=== PATIENT | female | born 1980 | race Caucasian/White ===

== ENCOUNTER 2017-11-15 05:56 | Emergency (ER) | payer OTHER ==
[2017-11-15] MEDS: HALOPERIDOL 5 MG INJ IM (06:14)
[2017-11-15] MEDS: LORAZEPAM 2 MG INJ IM (06:14)
[2017-11-15 06:53] LABS: ADD UMIC YES; UR ASCORBIC ACID NEGATIVE (NEGATIVE); UR BILIRUBIN (Dip) NEGATIVE (NEGATIVE); UR BLOOD (Dip) 1+ mg/dL (NEGATIVE); UR CLARITY CLEAR (CLEAR); UR COLOR COLORLESS (YELLOW); UR GLUCOSE (Dip) NEGATIVE (NEGATIVE); UR KETONES (Dip) TRACE mg/dL (NEGATIVE); UR LEUKOCYTE ESTERASE (Dip) NEGATIVE Leu/ul (NEGATIVE); UR NITRITE (Dip) NEGATIVE (NEGATIVE); UR RBC 0 /HPF (0-5); UR SPECIFIC GRAVITY (Dip) 1.002 (1.003-1.030); UR TOTAL PROTEIN (Dip) NEGATIVE (NEGATIVE); UR UROBILINOGEN (Dip) NEGATIVE (NEGATIVE); UR WBC 0 /HPF (0-5)
[2017-11-15 07:12] LABS: AMPHETAMINE/METHAMPHETAMINE Negative (NEGATIVE)
[2017-11-15 07:13] LABS: BARBITURATES Negative (NEGATIVE); BENZODIAZEPINES Negative (NEGATIVE); CANNABINOIDS Negative (NEGATIVE); COCAINE Negative (NEGATIVE); OPIATES Negative (NEGATIVE)
[2017-11-15 07:14] LABS: ADD MAN DIFF? NO
[2017-11-15 07:20] LABS: WHITE BLOOD COUNT 8.6 10^3/ul (4.8-10.8)
[2017-11-15 07:20] LABS: BASOPHILS % 0.1 % (0.0-2.0); HEMATOCRIT 34.8 % (37.0-47.0); HEMOGLOBIN 12.4 g/dl (12.0-16.0); LYMPHOCYTES # 0.9 10^3/ul (0.8-2.9); LYMPHOCYTES % 10.7 % (15.0-51.0); MEAN CORPUSCULAR HEMOGLOBIN 31.1 pg (29.0-33.0); MEAN CORPUSCULAR HGB CONC 35.6 g/dl (32.0-37.0); MEAN CORPUSCULAR VOLUME 87.2 fl (82.0-101.0); MEAN PLATELET VOLUME 9.7 fl (7.4-10.4); MONOCYTE # 0.4 10^3/ul (0.3-0.9); MONOCYTES % 4.3 % (0.0-11.0); NEUTROPHIL # 7.2 10^3/ul (1.6-7.5); NEUTROPHILS % 84.5 % (39.0-77.0); PLATELET COUNT 269 10^3/UL (140-415); RED BLOOD COUNT 3.99 10^6/ul (4.20-5.40); RED CELL DISTRIBUTION WIDTH 11.9 % (11.5-14.5)
[2017-11-15 07:37] LABS: ALANINE AMINOTRANSFERASE 34 IU/L (13-69); ALBUMIN 4.3 g/dl (3.3-4.9); ALKALINE PHOSPHATASE 84 IU/L (42-121); ANION GAP 17 (8-16); ASPARTATE AMINO TRANSFERASE 29 IU/L (15-46); BILIRUBIN,INDIRECT 0.8 mg/dl (0-1.1); BILIRUBIN,TOTAL 0.8 mg/dl (0.2-1.3); BLOOD UREA NITROGEN 11 mg/dl (7-20); CALCIUM 8.8 mg/dl (8.4-10.2); CARBON DIOXIDE 21 mmol/L (21-31); CHLORIDE 100 mmol/L (97-110); CREATININE 0.51 mg/dl (0.44-1.00); GLUCOSE 130 mg/dl (70-220); SODIUM 135 mmol/L (135-144); TOTAL PROTEIN 7.6 g/dl (6.1-8.1)
[2017-11-15 07:55] LABS: ACETAMINOPHEN < 10.0 ug/ml (10.0-30.0)
[2017-11-15 07:56] LABS: SALICYLATE < 1.0 mg/dl (5.0-30.0)
[2017-11-15 08:35] LABS: ETHANOL < 10.0 mg/dl
== END 2017-11-15 14:47 | disposition home or self-care (01) ==
LOC: E/R 05:56
DX: S01.511A Laceration without foreign body of lip, initial encounter (principal); T50.901A Poisoning by unspecified drugs, medicaments and biological substances, accidental (unintentional), initial encounter; F29 Unspecified psychosis not due to a substance or known physiological condition; F17.210 Nicotine dependence, cigarettes, uncomplicated; X58.XXXA Exposure to other specified factors, initial encounter; Y92.9 Unspecified place or not applicable
CPT/HCPCS: 36415; 70450; 80053; 80306; 80307; 81001; 84703; 85025; 96372; 99291-25

== ENCOUNTER 2017-11-16 13:17 | Emergency (ER) | payer OTHER ==
[2017-11-16] MEDS: DIPHENHYDRAMINE 50 MG CAP PO (13:50)
[2017-11-16] MEDS: BENZTROPINE 1 MG TAB PO (13:56)
== END 2017-11-16 14:35 | disposition home or self-care (01) ==
LOC: E/R 13:17
DX: G24.02 Drug induced acute dystonia (principal); F17.210 Nicotine dependence, cigarettes, uncomplicated; T43.4X5A Adverse effect of butyrophenone and thiothixene neuroleptics, initial encounter
CPT/HCPCS: 99283; Z7502

== ENCOUNTER 2018-01-30 10:47 | Emergency (ER) | payer OTHER | END 2018-01-30 11:44 | disposition home or self-care (01) | LOC: E/R 11:44 → FTE 10:47 | DX: H10.10 Acute atopic conjunctivitis, unspecified eye (principal); Z87.891 Personal history of nicotine dependence | CPT/HCPCS: 99283; Z7502 ==

== ENCOUNTER 2018-02-26 23:53 | Emergency (ER) | payer SELFPAY, OTHER | END 2018-02-27 01:46 | disposition left against medical advice (07) | LOC: E/R 23:53 | DX: Z53.21 Procedure and treatment not carried out due to patient leaving prior to being seen by health care provider (principal) ==

== ENCOUNTER 2018-07-23 17:17 | Emergency (ER) | payer OTHER ==
[2018-07-23] MEDS: DIPHENHYDRAMINE 50 MG CAP PO (20:35)
[2018-07-23] MEDS: KETOROLAC 60 MG INJ IM (20:35)
== END 2018-07-23 21:40 | disposition home or self-care (01) ==
LOC: FTE 17:17
DX: L29.9 Pruritus, unspecified (principal); J02.9 Acute pharyngitis, unspecified; R22.1 Localized swelling, mass and lump, neck; F17.210 Nicotine dependence, cigarettes, uncomplicated
CPT/HCPCS: 81025; 96372; 99284-25

== ENCOUNTER 2018-09-09 14:15 | Emergency (ER) | payer OTHER ==
[2018-09-09] MEDS: SOD CHLORIDE 0.9% 500 ML IV (14:56)
[2018-09-09 15:03] LABS: ADD MAN DIFF? NO
[2018-09-09 15:05] LABS: BASOPHILS % 0.3 % (0.0-2.0); EOSINOPHILS # 0.2 10^3/ul (0.0-0.5); HEMATOCRIT 43.2 % (37.0-47.0); HEMOGLOBIN 14.7 g/dl (12.0-16.0); LYMPHOCYTES # 0.7 10^3/ul (0.8-2.9); LYMPHOCYTES % 4.6 % (15.0-51.0); MEAN CORPUSCULAR HEMOGLOBIN 30.2 pg (29.0-33.0); MEAN CORPUSCULAR VOLUME 88.7 fl (82.0-101.0); MEAN PLATELET VOLUME 9.3 fl (7.4-10.4); MONOCYTE # 0.5 10^3/ul (0.3-0.9); MONOCYTES % 3.5 % (0.0-11.0); NEUTROPHIL # 13.8 10^3/ul (1.6-7.5); NEUTROPHILS % 90.3 % (39.0-77.0); PLATELET COUNT 358 10^3/UL (140-415); RED BLOOD COUNT 4.87 10^6/ul (4.20-5.40); RED CELL DISTRIBUTION WIDTH 11.9 % (11.5-14.5)
[2018-09-09 15:05] LABS: WHITE BLOOD COUNT 15.3 10^3/ul (4.8-10.8)
[2018-09-09 15:16] LABS: ADD UMIC YES; UR ASCORBIC ACID 40 mg/dL (NEGATIVE); UR BACTERIA FEW /HPF (NONE SEEN); UR BILIRUBIN (Dip) NEGATIVE (NEGATIVE); UR BLOOD (Dip) NEGATIVE (NEGATIVE); UR CLARITY SLIGHTLY CLOUDY (CLEAR); UR COLOR AMBER (YELLOW); UR GLUCOSE (Dip) NEGATIVE (NEGATIVE); UR KETONES (Dip) TRACE mg/dL (NEGATIVE); UR LEUKOCYTE ESTERASE (Dip) NEGATIVE Leu/ul (NEGATIVE); UR MUCUS MANY /HPF (NONE SEEN); UR NITRITE (Dip) NEGATIVE (NEGATIVE); UR RBC 8 /HPF (0-5); UR SPECIFIC GRAVITY (Dip) 1.031 (1.003-1.030); UR SQUAMOUS EPITHELIAL CELL FEW /HPF (FEW); UR TOTAL PROTEIN (Dip) 1+ mg/dl (NEGATIVE); UR UROBILINOGEN (Dip) NEGATIVE (NEGATIVE); UR WBC 2 /HPF (0-5)
[2018-09-09 15:24] LABS: ALANINE AMINOTRANSFERASE 10 IU/L (13-69); ALBUMIN 4.7 g/dl (3.3-4.9); ALBUMIN/GLOBULIN RATIO 1.34; ALKALINE PHOSPHATASE 99 IU/L (42-121); ANION GAP 13 (5-13); ASPARTATE AMINO TRANSFERASE 25 IU/L (15-46); BILIRUBIN,INDIRECT 0.4 mg/dl (0-1.1); BILIRUBIN,TOTAL 0.4 mg/dl (0.2-1.3); BLOOD UREA NITROGEN 10 mg/dl (7-20); CALCIUM 9.4 mg/dl (8.4-10.2); CARBON DIOXIDE 24 mmol/L (21-31); CHLORIDE 101 mmol/L (97-110); Estimated GFR > 60 mL/min (>60); GLUCOSE 100 mg/dl (70-220); POTASSIUM 4.3 mmol/L (3.5-5.1); SODIUM 138 mmol/L (135-144); TOTAL PROTEIN 8.2 g/dl (6.1-8.1)
== END 2018-09-09 16:03 | disposition home or self-care (01) ==
LOC: FTE 14:15
DX: O30.041 Twin pregnancy, dichorionic/diamniotic, first trimester (principal); O20.0 Threatened abortion; R10.11 Right upper quadrant pain; Z3A.01 Less than 8 weeks gestation of pregnancy
CPT/HCPCS: 76705; 76801; 80053; 81001; 84702; 85025; 87086; 96360; 99285-25

== ENCOUNTER 2018-10-12 18:01 | Emergency (ER) | payer OTHER ==
[2018-10-12] MEDS: ACETAMINOPHEN 325 MG TAB PO (19:40)
[2018-10-12] MEDS: SOD CHLORIDE 0.9% 1,000 ML IV (19:40)
[2018-10-12 19:46] LABS: ADD MAN DIFF? NO
[2018-10-12 19:49] LABS: BASOPHILS % 0.3 % (0.0-2.0); EOSINOPHILS # 0.3 10^3/ul (0.0-0.5); EOSINOPHILS % 2.7 % (0.0-7.0); HEMATOCRIT 38.1 % (37.0-47.0); HEMOGLOBIN 12.8 g/dl (12.0-16.0); LYMPHOCYTES # 2.1 10^3/ul (0.8-2.9); MEAN CORPUSCULAR HEMOGLOBIN 29.7 pg (29.0-33.0); MEAN CORPUSCULAR HGB CONC 33.6 g/dl (32.0-37.0); MEAN CORPUSCULAR VOLUME 88.4 fl (82.0-101.0); MEAN PLATELET VOLUME 9.5 fl (7.4-10.4); MONOCYTE # 0.8 10^3/ul (0.3-0.9); MONOCYTES % 7.5 % (0.0-11.0); NEUTROPHIL # 6.8 10^3/ul (1.6-7.5); NEUTROPHILS % 68.1 % (39.0-77.0); PLATELET COUNT 323 10^3/UL (140-415); RED BLOOD COUNT 4.31 10^6/ul (4.20-5.40); RED CELL DISTRIBUTION WIDTH 12.5 % (11.5-14.5)
[2018-10-12 19:55] LABS: ADD UMIC YES; UR ASCORBIC ACID 40 mg/dL (NEGATIVE); UR BILIRUBIN (Dip) NEGATIVE (NEGATIVE); UR BLOOD (Dip) 3+ mg/dL (NEGATIVE); UR CLARITY CLEAR (CLEAR); UR COLOR YELLOW (YELLOW); UR GLUCOSE (Dip) NEGATIVE (NEGATIVE); UR KETONES (Dip) TRACE mg/dL (NEGATIVE); UR LEUKOCYTE ESTERASE (Dip) NEGATIVE Leu/ul (NEGATIVE); UR MUCUS FEW /HPF (NONE SEEN); UR NITRITE (Dip) NEGATIVE (NEGATIVE); UR RBC 123 /HPF (0-5); UR SPECIFIC GRAVITY (Dip) 1.029 (1.003-1.030); UR TOTAL PROTEIN (Dip) NEGATIVE (NEGATIVE); UR UROBILINOGEN (Dip) NEGATIVE (NEGATIVE); UR WBC 2 /HPF (0-5)
== END 2018-10-12 20:50 | disposition home or self-care (01) ==
LOC: FTE 18:01
DX: O20.0 Threatened abortion (principal); Z3A.12 12 weeks gestation of pregnancy
CPT/HCPCS: 36415; 76801; 81001; 84702; 85025; 86900; 86901; 99285-25

== ENCOUNTER 2018-10-26 13:10 | Emergency (ER) | payer OTHER ==
[2018-10-26 15:11] LABS: URINE PH (Dip) POC 6.5 (5.0-8.5)
[2018-10-26 15:11] LABS: URINE BLOOD (Dip) POC Trace-lysed (NEGATIVE); URINE GLUCOSE (Dip) POC Negative (NEGATIVE); URINE KETONES (Dip) POC 1+ (NEGATIVE); URINE LEUKOCYTE EST (Dip) POC Negative (NEGATIVE); URINE NITRITE (Dip) POC Negative (NEGATIVE); URINE TOTAL PROTEIN POC 1+ (NEGATIVE)
== END 2018-10-26 17:35 | disposition home or self-care (01) ==
LOC: FTE 13:10
DX: O20.9 Hemorrhage in early pregnancy, unspecified (principal); O30.002 Twin pregnancy, unspecified number of placenta and unspecified number of amniotic sacs, second trimester; Z3A.15 15 weeks gestation of pregnancy; Z87.891 Personal history of nicotine dependence
CPT/HCPCS: 76805; 81003; 99284-25

== ENCOUNTER 2019-03-26 07:09 | Inpatient (IN) | payer OTHER ==
[2019-03-26] MEDS ORDERED: OXYTOCIN 30 UNITS/LR 500 ML IV ×2 (08:30→11:00)
[2019-03-26] MEDS ORDERED: METHYLERGONOVINE 0.2 MG INJ IM ×2 (08:30→11:00)
[2019-03-26] MEDS ORDERED: MISOPROSTOL 200 MCG TAB PR ×2 (08:30→11:00)
[2019-03-26] MEDS ORDERED: CARBOPROST 250 MCG INJ IM ×2 (08:30→11:00)
[2019-03-26 08:42] LABS: ADD MAN DIFF? NO
[2019-03-26] MEDS: LACTATED RINGER'S 1,000 ML IV ×2 (08:44→09:15)
[2019-03-26 08:46] LABS: BASOPHILS % 0.4 % (0.0-2.0); EOSINOPHILS # 0.2 10^3/ul (0.0-0.5); HEMOGLOBIN 12.9 g/dl (12.0-16.0); LYMPHOCYTES # 1.6 10^3/ul (0.8-2.9); LYMPHOCYTES % 20.6 % (15.0-51.0); MEAN CORPUSCULAR HEMOGLOBIN 29.3 pg (29.0-33.0); MEAN CORPUSCULAR HGB CONC 33.1 g/dl (32.0-37.0); MEAN CORPUSCULAR VOLUME 88.4 fl (82.0-101.0); MEAN PLATELET VOLUME 9.6 fl (7.4-10.4); MONOCYTE # 0.7 10^3/ul (0.3-0.9); MONOCYTES % 9.3 % (0.0-11.0); NEUTROPHIL # 5.2 10^3/ul (1.6-7.5); NEUTROPHILS % 67.1 % (39.0-77.0); PLATELET COUNT 250 10^3/UL (140-415); RED BLOOD COUNT 4.41 10^6/ul (4.20-5.40); RED CELL DISTRIBUTION WIDTH 13.8 % (11.5-14.5)
[2019-03-26 08:46] LABS: WHITE BLOOD COUNT 7.8 10^3/ul (4.8-10.8)
[2019-03-26] MEDS ORDERED: AZITHROMYCIN 500 MG in SOD CHLORIDE 0.9% 250 ML IVPB (09:00)
[2019-03-26 09:12] LABS: INR 0.94; PROTIME 12.7 Sec (11.9-14.9)
[2019-03-26 09:13] LABS: PARTIAL THROMBOPLASTIN TIME 29.1 Sec (23.0-35.0)
[2019-03-26] MEDS: AZITHROMYCIN 500 MG in SOD CHLORIDE 0.9% 250 ML IVPB (09:25)
[2019-03-26] MEDS ORDERED: NALOXONE (0.4 MG/ML) INJ IV (09:30)
[2019-03-26] MEDS ORDERED: ONDANSETRON 4 MG INJ IV ×2 (09:30)
[2019-03-26] MEDS ORDERED: ALBUTEROL 0.083% (NEB) 2.5 MG/3 ML AMP HHN (09:30)
[2019-03-26] MEDS ORDERED: PHENYLephrine (100 MCG/ML) 5ML SYG (09:30)
[2019-03-26] MEDS ORDERED: HYDROmorphONE 1 MG/5 ML IV SYRINGE IV ×3 (09:30)
[2019-03-26] MEDS ORDERED: DIPHENHYDRAMINE 50 MG INJ IV (09:30)
[2019-03-26] MEDS ORDERED: EPHEDrine 25 MG/5 ML SYG (09:30)
[2019-03-26] MEDS ORDERED: HYDROmorphONE 0.5 MG/0.5 ML SYG IV (09:30)
[2019-03-26] MEDS ORDERED: FENTAnyl 50 MCG/ML VIAL IV ×3 (09:30)
[2019-03-26] MEDS ORDERED: METOCLOPRAMIDE 10 MG INJ IV (09:30)
[2019-03-26] MEDS ORDERED: METHYLERGONOVINE 0.2 MG INJ ×2 (09:30→20:00)
[2019-03-26] MEDS ORDERED: CEFAZOLIN 1 GM INJ (09:30)
[2019-03-26] MEDS ORDERED: OXYTOCIN 30 UNITS/LR 500 ML BAG IV (09:30)
[2019-03-26 09:31] LABS: ADD UMIC NO; UR ASCORBIC ACID NEGATIVE (NEGATIVE); UR BILIRUBIN (Dip) NEGATIVE (NEGATIVE); UR BLOOD (Dip) NEGATIVE (NEGATIVE); UR CLARITY CLEAR (CLEAR); UR COLOR YELLOW (YELLOW); UR GLUCOSE (Dip) NEGATIVE (NEGATIVE); UR KETONES (Dip) NEGATIVE (NEGATIVE); UR LEUKOCYTE ESTERASE (Dip) NEGATIVE Leu/ul (NEGATIVE); UR NITRITE (Dip) NEGATIVE (NEGATIVE); UR SPECIFIC GRAVITY (Dip) 1.017 (1.003-1.030); UR TOTAL PROTEIN (Dip) NEGATIVE (NEGATIVE); UR UROBILINOGEN (Dip) NEGATIVE (NEGATIVE)
[2019-03-26] MEDS ORDERED: morphine SULFATE/PF (10 MG/10 ML) INJ (09:37)
[2019-03-26 09:42] LABS: HEPATITIS B SURFACE ANTIGEN NEGATIVE (NEGATIVE)
[2019-03-26] MEDS: OXYTOCIN 30 UNITS/LR 500 ML IV ×3 (10:47→20:19)
[2019-03-26] MEDS ORDERED: NACL 0.9% 3 ML SYG IV (11:00)
[2019-03-26] MEDS: CEFAZOLIN 2 GM/50 ML (PMX) 50 ML IVPB ×3 (11:00→17:17)
[2019-03-26] MEDS: KETOROLAC 30 MG INJ IV (12:15)
[2019-03-26] MEDS: HYDROmorphONE 0.5 MG/0.5 ML SYG IV (17:18)
[2019-03-26 18:16] LABS: RAPID PLASMA REAGIN NONREACTIVE (NR)
[2019-03-27] MEDS: HYDROmorphONE 0.5 MG/0.5 ML SYG IV (01:18)
[2019-03-27] MEDS: CEFAZOLIN 2 GM/50 ML (PMX) 50 ML IVPB ×2 (01:18→09:02)
[2019-03-27] MEDS: KETOROLAC 30 MG INJ IV ×2 (02:54→08:46)
[2019-03-27] MEDS: DIPHENHYDRAMINE 50 MG INJ IV (05:12)
[2019-03-27] MEDS: LACTATED RINGER'S 1,000 ML IV ×2 (06:19→13:30)
[2019-03-27 08:17] LABS: ADD MAN DIFF? NO
[2019-03-27 08:21] LABS: WHITE BLOOD COUNT 9.8 10^3/ul (4.8-10.8)
[2019-03-27 08:22] LABS: BASOPHILS % 0.3 % (0.0-2.0); EOSINOPHILS # 0.1 10^3/ul (0.0-0.5); EOSINOPHILS % 1.3 % (0.0-7.0); HEMATOCRIT 34.2 % (37.0-47.0); HEMOGLOBIN 11.5 g/dl (12.0-16.0); LYMPHOCYTES # 1.7 10^3/ul (0.8-2.9); LYMPHOCYTES % 17.1 % (15.0-51.0); MEAN CORPUSCULAR HEMOGLOBIN 29.6 pg (29.0-33.0); MEAN CORPUSCULAR HGB CONC 33.6 g/dl (32.0-37.0); MEAN CORPUSCULAR VOLUME 88.1 fl (82.0-101.0); MEAN PLATELET VOLUME 9.6 fl (7.4-10.4); MONOCYTE # 0.7 10^3/ul (0.3-0.9); MONOCYTES % 7.3 % (0.0-11.0); NEUTROPHIL # 7.2 10^3/ul (1.6-7.5); NEUTROPHILS % 73.7 % (39.0-77.0); PLATELET COUNT 212 10^3/UL (140-415); RED BLOOD COUNT 3.88 10^6/ul (4.20-5.40); RED CELL DISTRIBUTION WIDTH 13.9 % (11.5-14.5)
[2019-03-27] MEDS: OXYCODONE/ACETAMINOPHEN (5/325) TAB PO ×2 (14:13→23:57)
[2019-03-27] MEDS: IBUPROFEN 600 MG TAB PO ×2 (17:13→23:57)
[2019-03-28] MEDS: IBUPROFEN 600 MG TAB PO ×4 (06:44→23:53)
[2019-03-28] MEDS: OXYCODONE/ACETAMINOPHEN (5/325) TAB PO (22:12)
[2019-03-29] MEDS: IBUPROFEN 600 MG TAB PO ×2 (05:46→12:47)
[2019-03-29] MEDS: OXYCODONE/ACETAMINOPHEN (5/325) TAB PO (06:15)
[2019-03-29] MEDS: DIPHTH/TET/ACEL PERTUSS (ADULT) 0.5 ML VIAL IM* (14:33)
== END 2019-03-29 15:05 | disposition home or self-care (01) | DRG 788 ==
LOC: OBT 07:09 → L-D 07:09 → OBT 08:20 → L-D 08:20 → PP1 14:44
PROVIDERS: Obstetrics & Gynecology
PROC: 10D00Z1 Extraction of Products of Conception, Low, Open Approach (ICD-10-PCS; principal; 2019-03-26 10:00)
DX: O60.14X0 Preterm labor third trimester with preterm delivery third trimester, not applicable or unspecified (principal); O30.043 Twin pregnancy, dichorionic/diamniotic, third trimester; O99.214 Obesity complicating childbirth; E66.9 Obesity, unspecified; G89.18 Other acute postprocedural pain; Z3A.36 36 weeks gestation of pregnancy; Z37.2 Twins, both liveborn; Z23 Encounter for immunization
CPT/HCPCS: 81003; 85025; 85610; 85730; 86592; 86850; 86900; 86901; 87340; 88307; 90715; 99464

== ENCOUNTER 2019-04-19 23:28 | Emergency (ER) | payer OTHER ==
[2019-04-20 00:20] LABS: ADD MAN DIFF? NO
[2019-04-20 00:22] LABS: WHITE BLOOD COUNT 7.2 10^3/ul (4.8-10.8)
[2019-04-20 00:22] LABS: BASOPHILS % 0.6 % (0.0-2.0); EOSINOPHILS # 0.5 10^3/ul (0.0-0.5); EOSINOPHILS % 6.5 % (0.0-7.0); HEMATOCRIT 38.7 % (37.0-47.0); HEMOGLOBIN 12.9 g/dl (12.0-16.0); LYMPHOCYTES # 2.8 10^3/ul (0.8-2.9); LYMPHOCYTES % 38.7 % (15.0-51.0); MEAN CORPUSCULAR HEMOGLOBIN 29.1 pg (29.0-33.0); MEAN CORPUSCULAR HGB CONC 33.3 g/dl (32.0-37.0); MEAN CORPUSCULAR VOLUME 87.2 fl (82.0-101.0); MONOCYTE # 0.7 10^3/ul (0.3-0.9); MONOCYTES % 9.3 % (0.0-11.0); NEUTROPHIL # 3.2 10^3/ul (1.6-7.5); NEUTROPHILS % 44.6 % (39.0-77.0); PLATELET COUNT 249 10^3/UL (140-415); RED BLOOD COUNT 4.44 10^6/ul (4.20-5.40); RED CELL DISTRIBUTION WIDTH 12.7 % (11.5-14.5)
[2019-04-20 00:43] LABS: ALANINE AMINOTRANSFERASE 19 IU/L (13-69); ALBUMIN 3.9 g/dl (3.3-4.9); ALKALINE PHOSPHATASE 104 IU/L (42-121); ANION GAP 10 (5-13); ASPARTATE AMINO TRANSFERASE 34 IU/L (15-46); BILIRUBIN,INDIRECT 0.4 mg/dl (0-1.1); BILIRUBIN,TOTAL 0.4 mg/dl (0.2-1.3); BLOOD UREA NITROGEN 18 mg/dl (7-20); CARBON DIOXIDE 25 mmol/L (21-31); CHLORIDE 107 mmol/L (97-110); Estimated GFR > 60 mL/min (>60); GLUCOSE 107 mg/dl (70-220); POTASSIUM 3.7 mmol/L (3.5-5.1); SODIUM 142 mmol/L (135-144); TOTAL PROTEIN 6.9 g/dl (6.1-8.1)
== END 2019-04-20 01:21 | disposition home or self-care (01) ==
LOC: E/R 23:28
DX: O90.89 Other complications of the puerperium, not elsewhere classified (principal); G89.18 Other acute postprocedural pain
CPT/HCPCS: 80053; 85025; 99283